=== PATIENT | male | born 2000 | race Caucasian/White ===

== ENCOUNTER 2020-06-07 10:54 | Day surgery (SDC) | payer OTHER ==
[2020-06-06 12:28] VITALS: BMI 29.2
[2020-06-07] MEDS ORDERED: ONDANSETRON 4 MG/2 ML VIAL IVPUSH PRN ×2 (12:27→18:11)
[2020-06-07] MEDS ORDERED: oxyCODONE HCL 5 MG TABLET PO PRN ×2 (12:27→18:11)
[2020-06-07] MEDS ORDERED: LACTATED RINGERS SOLUTION 1,000 ML IV SCH (12:30)
[2020-06-07] MEDS ORDERED: DEXAMETHASONE SOD PHOSPHATE/PF 10 MG/ML SDV ONE (13:44)
[2020-06-07] MEDS ORDERED: ROPIVACAINE HCL 0.5% 30ML VIAL ONE (13:44)
[2020-06-07] MEDS ORDERED: MIDAZOLAM HCL 2 MG/2 ML SINGLE DOSE VIAL ONE ×2 (13:44→14:21)
[2020-06-07] MEDS ORDERED: PROPOFOL 20 ML ONE ×2 (15:43)
[2020-06-07] MEDS ORDERED: fentaNYL CITRATE 250 MCG/5 ML VIAL ONE (15:43)
[2020-06-07] MEDS ORDERED: ONDANSETRON 4 MG/2 ML VIAL ONE (18:01)
[2020-06-07] MEDS ORDERED: DEXAMETHASONE SOD PHOSPHATE 4 MG/1 ML VIAL ONE (18:01)
[2020-06-07] MEDS ORDERED: KETOROLAC TROMETHAMINE 30 MG/1 ML VIAL ONE (18:01)
[2020-06-07] MEDS ORDERED: ceFAZolin SODIUM 1 GM VIAL ONE ×2 (18:01)
[2020-06-07] MEDS ORDERED: PROMETHAZINE HCL 25 MG/1 ML VIAL IVPUSH PRN (18:11)
[2020-06-07 19:26] VITALS: TEMP 98.2
[2020-06-07 19:34] VITALS: BP 134/69; PULSE 86
== END 2020-06-07 19:34 | disposition home or self-care (01) ==
LOC: FASU 10:54
PROVIDERS: ATTEND Orthopaedic Surgery Sports Medicine
PROC: 0RQK4ZZ Repair Left Shoulder Joint, Percutaneous Endoscopic Approach (ICD-10-PCS; principal; 2020-06-07 16:19)
DX: S43.431A Superior glenoid labrum lesion of right shoulder, initial encounter (principal); X58.XXXA Exposure to other specified factors, initial encounter; Y93.9 Activity, unspecified; Y92.9 Unspecified place or not applicable
CPT/HCPCS: 94760